=== PATIENT | female | born 1960 | race Caucasian/White ===

== ENCOUNTER → 2016-03-07 | Outpatient (CLI) | payer MEDICAID ==
--- NOTE | 2016-03-07 17:20 | DX ---
PA and lateral chest History: Cough. Comparison: CT chest March 29, 2015, PA and lateral chest March 29, 2015. Findings: The lungs are hyperexpanded with mild peribronchial thickening with diffuse interstitial pr ominence without focal consolidation. There is no pneumothorax or pleural effusion. The heart and pul monary vasculature are normal. Mild degenerative change is present in the spine. Impression: Stable emphysema/COPD.
== END ==
LOC: FIMAGING 12:13
PROVIDERS: ATTEND Family Medicine
DX: J43.9 Emphysema, unspecified (principal)

== ENCOUNTER → 2016-04-13 | Outpatient (CLI) | payer MEDICAID | LOC: FIMAGING 11:32 | PROVIDERS: ATTEND Physician Assistant Medical | DX: B18.2 Chronic viral hepatitis C (principal); Z90.3 Acquired absence of stomach [part of] | CPT/HCPCS: 80307; 82172-90; 82947-QW; 83010-90; 86708-90; 86709-90; G0480 ==